=== PATIENT | male | born 1965 | race Caucasian/White ===

== ENCOUNTER 2020-03-01 15:45 | Emergency (ER) | payer OTHER, MEDICAID ==
[~2020-03-01] VITALS: Ht 175.2 cm; Wt 83.9 kg
--- NOTE | 2020-03-01 16:09 | NUR ---
PT YELLING USING VULGAR LANGUAGE AND CURSING @ STAFF AND BEING UNCOOPERATIVE @ THIS TIME,PT WAS REPEATEDLY ASKED TO CALM DOWN AND PLEASE STOP YELLING AND USING VULGAR LANGUAGE,PT CONTINUES TO DO SO AND SECURITY NOTIFIED.
--- NOTE | 2020-03-01 16:11 | NUR ---
PT PHYSICALLY THREATENING, NONCOMPLIANT, PROFANE, INSULTING AND WILL NOT REDIRECT TO HIS ROOM, STATES DESPITE OUR POLICY AGAINST BOTH SMOKING AND AGAINST INTOXICATED PERSONS LEAVING THAT HE IS LEAVING TO GO SMOKE. POLICE CALLED AND DO ARRIVE TO DEPARTMENT TO CLARIFY THE SITUATION WITH PATIENT. PT IS NOW COMPLIANT (AT THIS MOMENT) AND ADMISSION WILL PROCEED, PER DR KAPLAN. I HAVE BEEN UNABLE TO REACH [employer] BY PHONE AFTER TWO ATTEMPTS.
[2020-03-01 16:12] VITALS: BP 160/96
[2020-03-01 16:49] LABS: BASO # 0.1 10*3/uL (0.0-0.1); BASO % 0.8 % (0.0-1.0); EOS % 0.6 % (1.0-4.0); HEMATOCRIT 39.1 % (42.0-52.0); LYMPH # 3.2 10*3/uL (1.3-4.4); LYMPH % 49.2 % (27.0-41.0); MEAN CELL VOLUME 87.3 fl (80.0-94.0); MEAN CORPUSCULAR HGB 27.2 pg (27.0-31.0); MEAN CORPUSCULAR HGB CONC 31.2 g/dl (33.0-37.0); MEAN PLATELET VOLUME 8.6 fl (9.6-12.3); MONO # 0.4 10*3/uL (0.1-1.0); MONO % 6.6 % (3.0-9.0); NEUT # 2.8 10*3/uL (2.3-7.9); NEUT % 42.5 % (47.0-73.0); PLATELET COUNT AUTOMATED 255 10*3/uL (130-400); RED BLOOD COUNT 4.48 10*6/uL (4.50-5.90); RED CELL DISTRI WIDTH 20.4 % (0-14.5); WHITE BLOOD COUNT 6.5 10*3/uL (4.8-10.8)
--- NOTE | 2020-03-01 16:50 | NUR ---
PT CONTINUES TO REFUSE NICOTINE PATCH,PHYSICIAN AWARE.T.V. PROVIDED AND PT NOTIFIED THAT A DINNER TRAY WAS ORDERED,CALL LIGHT WITHIN REACH.
[2020-03-01 17:00] LABS: ACT PARTIAL THROMBO TIME 26.8 SECONDS (20.0-32.1)
[2020-03-01 17:05] LABS: ALBUMIN 4.5 gm/dl (3.1-4.5); ALKALINE PHOSPHATASE 102 U/L (45-117); BUN 10 mg/dl (7-24); CHLORIDE 106 mmol/L (98-107); CREATININE 0.84 mg/dL (0.70-1.30); POTASSIUM 3.9 mmol/L (3.5-5.1); SGOT/AST 49 IU/L (3-35); SGPT/ALT 33 U/L (12-78); SODIUM 143 mmol/L (136-145); TOTAL PROTEIN 8.8 gm/dL (6.4-8.2)
--- NOTE | 2020-03-01 17:13 | NUR ---
PT'S FRIEND JUDITH CALLED WITH A PHONE NUMBER FOR UPDATES ON PT. PHONE NUMBER [phone].
--- NOTE | 2020-03-01 17:16 | NUR ---
PT CONTINUES TO BE VULGAR AND VERBALLY ABUSIVE TO STAFF,PT PROVIDED NICOTROL INHALER AND CONTINUES TO SCREAM THAT HE "IS LEAVING". WILL CONTINUE TO MONITOR.
--- NOTE | 2020-03-01 17:50 | NUR ---
PT PROVIDED A DINNER TRAY AND EATING/WATCHING T.V.
--- NOTE | 2020-03-01 18:11 | NUR ---
PT REFUSING IV ACCESS FOR MEDICATIONS AND STATING "YOU CAN TELL THEM THEY CAN ALL GO SUCK A PETR!"
--- NOTE | 2020-03-01 18:15 | NUR ---
PT REFUSES TO USE THE URINAL AN/OR TO OBTAIN A URINE SAMPLE FOR ANALYSIS AND WAS ESCORTED BY SECURITY TO RESTROOM.
--- NOTE | 2020-03-01 18:30 | NUR ---
SECURITY TO DESK TO ADVISE THAT PATIENT JUST RAN OUT OF THE ED. [place] [employer] NOTIFIED AND WILL BE ENROUTE.
--- NOTE | 2020-03-01 18:47 | NUR ---
PT WAS LET GO PER [facility] D/T PT REFUSING TO RETURN TO THE ED,PT HAS BELONGINGS AND PHONE AND LEFT ED PROPERTY.PT'S CONTACT JUDITH NOTIFIED.
--- NOTE | 2020-03-01 19:17 | NUR ---
PT REMAINS ELOPED FROM [facility] AND [facility] NOTIFIED.
--- NOTE | 2020-03-01 19:19 | NUR ---
UNABLE TO ASSESS SUICIDAL RISK D/T PT'S UNCOOPERATIVE BEHAVIOR.
== END 2020-03-01 19:30 | disposition left against medical advice (07) ==
LOC: ED 15:45 → EDHOLD 16:22 → ED 16:22 → EDHOLD 16:49 → ED 19:30
PROVIDERS: Emergency Medicine
DX: F10.129 Alcohol abuse with intoxication, unspecified (principal); R79.1 Abnormal coagulation profile; Y90.9 Presence of alcohol in blood, level not specified

== ENCOUNTER 2020-03-01 22:35 | Emergency (ER) | payer OTHER, MEDICAID ==
[2020-03-01 22:57] LABS: BASO % 0.5 % (0.0-1.0); EOS % 0.4 % (1.0-4.0); HEMATOCRIT 33.7 % (42.0-52.0); LYMPH # 2.6 10*3/uL (1.3-4.4); LYMPH % 47.3 % (27.0-41.0); MEAN CELL VOLUME 87.5 fl (80.0-94.0); MEAN CORPUSCULAR HGB 28.3 pg (27.0-31.0); MEAN CORPUSCULAR HGB CONC 32.3 g/dl (33.0-37.0); MEAN PLATELET VOLUME 10.3 fl (9.6-12.3); MONO # 0.5 10*3/uL (0.1-1.0); MONO % 9.3 % (3.0-9.0); NEUT # 2.3 10*3/uL (2.3-7.9); NEUT % 42.1 % (47.0-73.0); PLATELET COUNT AUTOMATED 198 10*3/uL (130-400); RED BLOOD COUNT 3.85 10*6/uL (4.50-5.90); RED CELL DISTRI WIDTH 20.6 % (0-14.5); WHITE BLOOD COUNT 5.5 10*3/uL (4.8-10.8)
[2020-03-01 23:12] LABS: ALBUMIN 3.7 gm/dl (3.1-4.5); ALKALINE PHOSPHATASE 101 U/L (45-117); BUN 15 mg/dl (7-24); CHLORIDE 107 mmol/L (98-107); CREATININE 0.87 mg/dL (0.70-1.30); POTASSIUM 3.4 mmol/L (3.5-5.1); SGOT/AST 41 IU/L (3-35); SGPT/ALT 31 U/L (12-78); SODIUM 142 mmol/L (136-145); TOTAL PROTEIN 7.6 gm/dL (6.4-8.2)
== END 2020-03-02 09:03 | disposition home or self-care (01) ==
LOC: ED 22:35
PROVIDERS: Internal Medicine
DX: F10.129 Alcohol abuse with intoxication, unspecified (principal); Y90.9 Presence of alcohol in blood, level not specified